=== PATIENT | male | born 1990 | race Two or more races ===

== ENCOUNTER 2022-12-24 22:59 | Emergency (ER) | payer MEDICAID, OTHER ==
[~2022-12-24] VITALS: Ht 170.2 cm; Wt 95.0 kg
[2022-12-24 23:46] VITALS: BP 140/87
== END 2022-12-25 06:23 | disposition left against medical advice (07) ==
LOC: ER 22:59
DX: R10.11 Right upper quadrant pain (principal); Z53.21 Procedure and treatment not carried out due to patient leaving prior to being seen by health care provider